=== PATIENT | female | born 1985 | race Caucasian/White ===

== ENCOUNTER 2021-03-13 23:13 | Emergency (ER) | payer SELFPAY ==
[~2021-03-13] VITALS: Ht 167.6 cm; Wt 49.9 kg
[2021-03-13 23:30] VITALS: BP_SYST 115
--- NOTE | 2021-03-13 23:30 | NUR ---
Patient triaged and placed in waiting room. VSS and patient appears in no acute distress at this time. Accompanied by SELF, awaiting available bed, and MD notified of need for MSE.
[2021-03-14] MEDS ORDERED: GABAPENTIN 100 MG CAPSULE PO ONE (01:15)
--- NOTE | 2021-03-14 01:15 | NUR ---
Dr. Vaughan in triage room examining patient
--- NOTE | 2021-03-14 01:36 | NUR ---
medicated per md orders. patient tolerated well. Patient given lunch box and grape juice
--- NOTE | 2021-03-14 02:00 | NUR ---
PATIENT AAOX3 AND AMBULATORY C/O MULTIPLE COMPLAINTS. PT STATED HAVING ABD/BACK PAIN X 3 YEARS. -N/V/D.STATING HAVING "WORSENING PAIN AND STRESS WITH ANXIETY I AM ABOUT TO BURST". PT DENIES ANY SUICIDAL IDEATIONS. VSS. CURRENTLY STATING HAVING 8/10 ON THE PAIN SCALE. HISTORY OF ANXIETY, DEPRESSION, MULTIPLE PERSONALITY DISORDER, OCD, HTN.
--- NOTE | 2021-03-14 03:00 | NUR ---
Patient resting quietly and sleeping in waiting room. No acute distress noted. Vital signs within normal range.
[2021-03-14] MEDS ORDERED: NEU300 PO (03:28)
[2021-03-14] MEDS ORDERED: ALPR0.25 PO (03:28)
[2021-03-14] MEDS ORDERED: PERM60CR18 TP (03:28)
[2021-03-14 03:37] VITALS: BP_SYST 115
--- NOTE | 2021-03-14 03:38 | NUR ---
Patient given written and verbal discharge instructions and verbalizes understanding. DR.D'AGOSTINO MARILEE NIETO discussed with patient the results and treatment provided. Patient in stable condition. ID arm band removed. Rx of XANAX, NEURONTIN, ACTICIN given. Patient educated on pain management and to follow up with PMD. Pain Scale 0/10. Opportunity for questions provided and answered. Medication side effect fact sheet provided.
--- NOTE | 2021-03-14 10:51 | NUR ---
GROUP MANAGER met with Pt. at ER waiting Room. GROUP MANAGER completed Homeless Assessment with Pt. Pt. was D/C last night, she was requesting information for low cost RX. Pt. was provided with Homeless Packet with referrals to free of cost [facility] in addition to [facility] flyer with instructions on how to reactivate her [employer]. Pt. was requesting transportation to [address] [place] [address] in [place] [id number] in addition to a meal that is soft because she has dental pain. This scientific technical writer obtained Taxi Waiver and Meal Ticket for Pt. from [employer]. GROUP MANAGER requested size small pants and shirt for Pt. as well from Security donation. Pt. was provided with services requested. No other question or concerns at this time.
== END 2021-03-14 03:38 | disposition home or self-care (01) ==
LOC: SED 23:13
DX: F41.1 Generalized anxiety disorder (principal); F15.10 Other stimulant abuse, uncomplicated; Z88.0 Allergy status to penicillin; Z88.8 Allergy status to other drugs, medicaments and biological substances; Z79.899 Other long term (current) drug therapy
CPT/HCPCS: 99283

== ENCOUNTER 2021-04-16 12:26 | Emergency (ER) | payer SELFPAY ==
[~2021-04-16] VITALS: Ht 167.6 cm; Wt 36.3 kg
[~2021-04-16 12:26] MED LIST: ALPR0.25 PO; NEU300 PO; PERM60CR18 TP
--- NOTE | 2021-04-16 13:44 | NUR ---
Patient to ER bed 07 to gown for evaluation. Side rails up.
--- NOTE | 2021-04-16 13:45 | NUR ---
Patient ambulatory to room 7 re vaginal "white patches", as well as "pus" discharge; stated "I think I have herpes." Patient also stated "I have scabies" and states she has not been able to afford the medication prescribed. Patient also reports being homeless. VSS. Awaiting MD evaluation.
[2021-04-16 13:55] VITALS: BP_SYST 122
--- NOTE | 2021-04-16 14:00 | NUR ---
Dr Kang to bedside to assess patient. This RN chaperoned.
[2021-04-16] MEDS ORDERED: ACYCLOVIR 400 MG TABLET PO ONE (14:30)
[2021-04-16] MEDS ORDERED: ACYCLOVIR 400 MG TABLET PO SCH (14:30)
[2021-04-16] MEDS ORDERED: HYDROcodone/ACETAMIN 5-325 MG TAB (NORCO/ VICODIN) PO ONE (14:30)
[2021-04-16] MEDS ORDERED: NEU300 PO (14:39)
[2021-04-16] MEDS ORDERED: PERM60CR18 TP (14:39)
[2021-04-16] MEDS ORDERED: ACYC-133 PO (14:42)
--- NOTE | 2021-04-16 15:11 | NUR ---
Patient given written and verbal discharge instructions and verbalizes understanding. ER MD discussed with patient the results and treatment provided. Patient in stable condition. ID arm band removed. Rx of Acyclovir, Gabapentin and Permethrin given. Patient educated on pain management and to follow up with PMD. Pain scale 0/10. Opportunity for questions provided and answered. Medication side effect fact sheet provided.
[2021-04-16 15:12] VITALS: BP_SYST 122
== END 2021-04-16 15:12 | disposition home or self-care (01) ==
LOC: SED 12:26
DX: B00.9 Herpesviral infection, unspecified (principal); F17.210 Nicotine dependence, cigarettes, uncomplicated; Z88.0 Allergy status to penicillin; Z79.899 Other long term (current) drug therapy
CPT/HCPCS: 99284